=== PATIENT | male | born 1980 | race Caucasian/White ===

== ENCOUNTER 2020-02-06 11:16 | Emergency (ER) | payer BC ==
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
--- NOTE | 2020-02-06 12:35 | CT ---
Head CT Technique: Multiple axial sections through the brain were obtained. Intravenous contrast was not utilized. Comparison: No prior intracranial imaging is available. Findings: Ventricles along with basal cisterns and sulci over the convexities are within normal limits for the patient's age. Visualized globes are symmetric. Visualized retrobulbar regions are unremarkable. No abnormal parenchymal densities are seen. No evidence of intracranial hemorrhage. No midline shift or mass-effect is seen. Bone window settings were reviewed. Visualized mastoid sinuses and paranasal sinuses show nothing acute. No acute calvarial finding is seen. Impression: 1. Nothing acute is appreciated on noncontrast head CT exam. Diagnostic code #1 This report was dictated in MDT
== END 2020-02-06 12:59 | disposition home or self-care (01) ==
LOC: JD.ED 11:16
DX: G43.109 Migraine with aura, not intractable, without status migrainosus (principal); Z88.2 Allergy status to sulfonamides
CPT/HCPCS: 70450; 70450-26; 99282; 99285-25